=== PATIENT | female | born 1995 | race Caucasian/White ===

== ENCOUNTER 2018-05-16 22:38 | Emergency (ER) | payer SELFPAY ==
[~2018-05-16] VITALS: Ht 162.6 cm; Wt 63.5 kg
[2018-05-16 22:47] VITALS: BP 123/80
[2018-05-16] MEDS ORDERED: SODIUM CHLORIDE 0.9% 1,000 ML IV ONE (23:03)
[2018-05-16 23:20] LABS: CLARITY URINE CLEAR (CLEAR); COLOR URINE YELLOW (YELLOW); KETONES URINE NEGATIVE (NEGATIVE); LEUKOCYTE ESTERASE URINE NEGATIVE (NEGATIVE); NITRITE URINE NEGATIVE (NEGATIVE); OCCULT BLOOD URINE NEGATIVE (NEGATIVE); PH URINE 6.5 (4.5-8.0); PROTEIN URINE NEGATIVE (NEGATIVE); SPECIFIC GRAVITY URINE 1.002 (1.005-1.030); UROBILINOGEN URINE 0.2 E.U./dL (0.2-1.0)
[2018-05-16 23:36] LABS: BASOPHILS % 0.6 % (0.0-2.0); EOSINOPHILS % 0.7 % (0.0-5.0); HEMATOCRIT. 39.6 % (36.0-48.0); HEMOGLOBIN. 13.9 g/dL (12.0-16.0); LYMPHOCYTES % 22.5 % (20.0-50.0); MEAN CORPUSCULAR HEMOGLOBIN 31.3 pg (28.0-32.0); MEAN CORPUSCULAR VOLUME 89.2 fL (81.0-99.0); MEAN PLATELET VOLUME 7.4 fl (7.4-10.4); MONOCYTES % 4.3 % (2.0-8.0); NEUTROPHILS % 71.9 % (40.0-76.0); PLATELET 414 x1000/uL (130-400); RED BLOOD CELL COUNT 4.44 mill/uL (4.2-5.4); RED CELL DISTRIBUTION WIDTH 12.9 % (11.6-14.6)
[2018-05-16 23:41] LABS: CHLORIDE 107 mEq/L (98-107)
[2018-05-16 23:46] LABS: HCG SCREEN NEGATIVE
[2018-05-17 00:15] LABS: ETHANOL BLOOD 320 mg/dL
[2018-05-17] MEDS ORDERED: SODIUM CHLORIDE 0.9% 1000ML BAG (SEPSIS BOLUS) IV ONE (00:45)
== END 2018-05-17 02:07 | disposition left against medical advice (07) ==
LOC: ER 23:28
DX: T51.91XA Toxic effect of unspecified alcohol, accidental (unintentional), initial encounter (principal); F10.129 Alcohol abuse with intoxication, unspecified; F17.200 Nicotine dependence, unspecified, uncomplicated; E87.2 Acidosis; R41.0 Disorientation, unspecified; Y92.9 Unspecified place or not applicable
CPT/HCPCS: 36415; 71045; 80053; 80307; 80329; 81003; 83605; 83690; 84703; 85025; 85610; 93005; 99291; G0482; J7030